=== PATIENT | female | born 1980 | race Caucasian/White ===

== ENCOUNTER → 2023-11-19 19:01 | Outpatient (REF) | payer OTHER, SELFPAY | LOC: MRI 19:01 | PROVIDERS: ATTENDING PHYSICIAN Orthopaedic Surgery; FAMILY PHYSICIAN Nurse Practitioner | DX: M54.16 Radiculopathy, lumbar region (principal) | CPT/HCPCS: 72148 ==

== ENCOUNTER 2025-03-10 16:20 | Emergency (ER) | payer OTHER, SELFPAY ==
[2025-03-10 16:22] VITALS: BP 121/82
[2025-03-10 16:40] LABS: Hematocrit 36.0 % (37.0-47.0); Hemoglobin 13.2 g/dL (12.0-16.0); Mean Corp Hgb Conc. 36.7 g/dL (33.0-37.0); Mean Corpuscular Volume 106.5 fL (81.0-99.0); Nucleated Red Blood Cells % 0 %; Platelet Count 182 10^3/uL (130-400); Red Cell Dist. Width 13.0 % (11.5-14.5)
[2025-03-10 16:54] LABS: HCG, Serum Qualitative Screen Negative
[2025-03-10 16:55] LABS: INR 1.04; PT 13.9 Sec (11.4-14.6)
[2025-03-10 16:56] LABS: APTT 25.6 Sec (23.4-35.0)
[2025-03-10 16:58] LABS: ALT (SGPT) 71 U/L (0-35); AST (SGOT) 108 U/L (14-36); Albumin 4.7 g/dl (3.5-5.0); Alkaline Phosphatase 42 U/L (38-126); Blood Urea Nitrogen 8 mg/dl (7-17); Calcium 9.4 mg/dl (8.4-10.2); Carbon Dioxide 17 mmol/L (22-30); Chloride 110 mmol/L (98-107); Glucose 96 mg/dl (70-99); Potassium 4.0 mmol/L (3.5-5.1); Sodium 139 mmol/L (135-145); Total Protein 6.8 g/dl (6.3-8.2); eGFR > 60.00
== END 2025-03-10 18:57 ==
LOC: EMR 16:20
PROVIDERS: Emergency Medicine
DX: K62.5 Hemorrhage of anus and rectum (principal); Z53.21 Procedure and treatment not carried out due to patient leaving prior to being seen by health care provider
CPT/HCPCS: 80053; 84703; 85025; 85610; 85730

== ENCOUNTER 2025-03-11 07:11 | Emergency (ER) | payer OTHER, SELFPAY ==
[2025-03-11 07:17] VITALS: BP 117/77
--- NOTE | 2025-03-11 09:10 | ED.GENMED ---
History of Present Illness
General
Chief Complaint: Rectal Bleeding
Time Seen by Provider: 03/11/25 08:47
History of Present Illness
History of Present Illness:
44-year-old female with past medical history of anemia, gastric bypass in 2007 presenting to the emergency department for concern of blood after defecation, and difficulty tolerating certain foods. She notes particularly in the past few days every
time that she eats bread containing products she will vomit. Yesterday she notes she was able to tolerate a smoothie and a small piece of pizza. She came to the ER as directed by her doctor, however due to extended wait, left without being seen.
She then went to [facility] and had a cheeseburger. After eating a cheeseburger, she vomited. She does note that she has been on Mounjaro for the past year without significant complications. Denies any present abdominal pain. Does note some
abdominal pain preceding her vomiting. As far as the blood per rectum, notes that the blood is visible after wiping, however brown stool. She is not on any blood thinners. Denies weakness or lightheadedness. Denies chest pain or difficulty
breathing. Denies additional acute medical complaints
Past History
Past History
ED Past Medical History: Other (pcos, gastric bypass, anemia)
ED Past Surgical History: , Gynecological, Tonsilectomy and Other
Social History
Tobacco: Non-smoker
Alcohol: Occasional
Drug: None
Living: with family
Employment: Employed
Phy Exam
Physical Exam
Physical Exam:
General: Well-appearing, no clinical signs of dehydration, nontoxic and in no acute distress
HEENT: protecting airway
Neck: appears supple
CV: Normal heart rate, regular rhythm
Resp: No accessory muscle use, no increased work of breathing, lungs clear to ausc, normal bowel sounds
Extremities: No deformities, no swelling
Neuro: alert, no focal neurologic deficit
: deferred
Rectal: Hemoccult negative brown stool
Psych: Normal affect
Skin: Intact
Course
Orders/Labs/Results
Orders:
Orders
03/11/25 09:38
CBC/With Diff [Complete Blood Count/With Diff] Urgent
Comprehensive Metabolic Panel Urgent
Lipase Urgent
Abnormal Lab Results
03/11/25
09:38
WBC 4.0 L 10^3/uL
(4.8-10.8)
RBC 3.45 L 10^6/uL
(4.20-5.40)
Hct 36.5 L %
(37.0-47.0)
MCV 105.8 H fL
(81.0-99.0)
MCH 37.7 H pg
(27.0-31.0)
Chloride 109 H mmol/L
(98-107)
Carbon Dioxide 19 L mmol/L
(22-30)
AST 85 H U/L
(14-36)
ALT 71 H U/L
(0-35)
03/11/25 09:38
03/11/25 09:38
Vital Signs
Initial and Last Documented VS:
Initial Vital Signs
Temp Pulse Resp BP Pulse Ox
98.4 F 104 16 117/77 97
03/11/25 07:17 03/11/25 07:17 03/11/25 07:17 03/11/25 07:17 03/11/25 07:17
Last Documented Vital Signs
Temp Pulse Resp BP Pulse Ox
98.4 F 104 16 117/77 97
03/11/25 07:17 03/11/25 07:17 03/11/25 07:17 03/11/25 07:17 03/11/25 09:12
MDM/Problems Addressed
MDM/Problems Addressed:
44-year-old female with prior history of gastric bypass presenting for food intolerance and concern of blood per rectum. Vital signs are normal.
On exam patient is resting comfortably, no acute distress or discomfort. Regarding blood per rectum, Hemoccult negative, and hemodynamically stable without any concern for significant GI hemorrhage. Patient had labs obtained yesterday, prior to
LWOT, normal hemoglobin. Will repeat to ensure no interval change. Patient notes she has had blood per rectum in the past, attributed to hemorrhoids. Suspected likely source. Regarding her food intolerance, appears to be focused to bread
containing products. Possible gluten sensitivity or developing allergy. Could also be related to patient's use of Mounjaro. No clinical signs of dehydration. No tenderness of the abdomen without any concern for serious intra-abdominal process or
infection. No indication for advanced abdominal imaging.
10:30 -labs show a mild elevation of liver enzymes, however improved from yesterday. No focal tenderness to the right upper quadrant. Suspect likely from fatty liver disease. Feel stable for discharge outpatient PCP and GI follow-up. May warrant
endoscopy versus colonoscopy. Advised diet modification. Return precautions discussed
*Pulse Oximetry
SaO2: 97
Oxygen Mode of Delivery: Room air
Patient hypoxic: no
*Critical Care Note
Total Time (30-74mins, 75-104mins- exclusive of procedures): Not Applicable
ED Attending Note
-
Portions of this chart may have been created with voice recognition software.� Occasional wrong word or��sound alike� substitutions may have occurred due to the inherent limitations of voice recognition software.
Discharge Plan
Departure
Patient with high blood pressure during this ER visit?: No
Condition: Good
Discharge Problem:
Gastrointestinal food sensitivity
Instructions: Hemorrhoids (DC), Bloody Stools, Adult (DC), Gluten-free diet
Prescriptions:
No Action
levothyroxine 150 MCG tablet
150 mcg PO HS
sertraline 100 MG tablet
100 mg PO HS
Slow Release Iron
1 tab PO DAILY
lorazepam 1 MG tablet
1 mg PO Q4HPRN PRN (Reason: withdrawal symptoms) Qty: 20 0RF
eszopiclone [Lunesta] 3 MG tablet
3 mg PO HS
celecoxib 100 MG capsule
100 mg PO DAILY
Referrals:
Caron Meyer MD [Active, Gastroenterology]
Ger Grajeda MD [Family Provider, Internal Medicine]
Activity Restrictions/Additional Instructions:
You were seen in the emergency department for concern of blood per rectum and food intolerance
You were found to have reassuring laboratory analysis and rectal exam. We recommend that you follow-up with a gastrointestinal doctor for additional testing and try and gluten free diet
Please follow-up closely with your primary care physician.
Return to the emergency department for any worsening of your symptoms, or any development of chest pain, difficulty breathing, abdominal pain with persistent vomiting and inability to tolerate food or liquid by mouth (concern for dehydration),
weakness, headache or confusion, fever greater than 100.4, or any additional symptoms that are concerning to you.
Thank you for choosing [facility].
Interventions
Interventions:
*Risk Screen - Suicide Last Done: 03/11/25 07:17
*Neglect/Abuse Screening Last Done: 03/11/25 07:17
Discharge Date and Time
Print Language: HEBREW
[2025-03-11 09:39] VITALS: BMI 32.9
[2025-03-11 09:53] LABS: Hematocrit 36.5 % (37.0-47.0); Hemoglobin 13.0 g/dL (12.0-16.0); Mean Corp Hgb Conc. 35.6 g/dL (33.0-37.0); Mean Corpuscular Volume 105.8 fL (81.0-99.0); Nucleated Red Blood Cells % 0 %; Platelet Count 173 10^3/uL (130-400); Red Cell Dist. Width 13.3 % (11.5-14.5)
[2025-03-11 10:00] VITALS: BP 113/87
[2025-03-11 10:24] LABS: ALT (SGPT) 71 U/L (0-35); AST (SGOT) 85 U/L (14-36); Albumin 4.5 g/dl (3.5-5.0); Alkaline Phosphatase 40 U/L (38-126); Blood Urea Nitrogen 7 mg/dl (7-17); Calcium 9.0 mg/dl (8.4-10.2); Carbon Dioxide 19 mmol/L (22-30); Chloride 109 mmol/L (98-107); Estimated Creatinine Clearance > 125 ml/min; Glucose 86 mg/dl (70-99); Lipase 110 U/L (23-300); Potassium 4.2 mmol/L (3.5-5.1); Sodium 139 mmol/L (135-145); Total Protein 6.7 g/dl (6.3-8.2); eGFR > 60.00
[2025-03-11 11:05] VITALS: BP 124/68
== END 2025-03-11 11:06 | disposition home or self-care (01) ==
LOC: EMR 07:11
PROVIDERS: EMERGENCY PHYSICIAN Student in an Organized Health Care Education/Training Program; FAMILY PHYSICIAN Internal Medicine
DX: T78.1XXA Other adverse food reactions, not elsewhere classified, initial encounter (principal); X58.XXXA Exposure to other specified factors, initial encounter; D64.9 Anemia, unspecified; Z87.19 Personal history of other diseases of the digestive system; Z98.84 Bariatric surgery status
CPT/HCPCS: 99283; 80053; 83690; 85025

== ENCOUNTER 2025-03-22 06:20 | Day surgery (SDC) | payer OTHER, SELFPAY | END 2025-03-22 13:09 | disposition home or self-care (01) | LOC: GI 06:20 | PROVIDERS: ATTENDING PHYSICIAN Internal Medicine | DX: K92.1 Melena (principal); K64.8 Other hemorrhoids; R11.2 Nausea with vomiting, unspecified; K44.9 Diaphragmatic hernia without obstruction or gangrene; R10.13 Epigastric pain; K21.00 Gastro-esophageal reflux disease with esophagitis, without bleeding; K29.50 Unspecified chronic gastritis without bleeding; K31.89 Other diseases of stomach and duodenum; Z98.0 Intestinal bypass and anastomosis status; Z98.84 Bariatric surgery status | CPT/HCPCS: 45378; 43239; 88305; 88342 ==

== ENCOUNTER → 2025-04-02 06:42 | Outpatient (REF) | payer OTHER, SELFPAY | LOC: RAD 06:42 | PROVIDERS: ATTENDING PHYSICIAN Internal Medicine; FAMILY PHYSICIAN Nurse Practitioner | DX: R74.8 Abnormal levels of other serum enzymes (principal) | CPT/HCPCS: 76700; 93975 ==

== ENCOUNTER 2025-06-18 14:46 | Emergency (ER) | payer OTHER, SELFPAY ==
[2025-06-18 14:49] VITALS: BP 158/96
--- NOTE | 2025-06-18 15:03 | ED.GENMED ---
History of Present Illness
General
Chief Complaint: Head Injury
Time Seen by Provider: 06/18/25 14:56
History of Present Illness
History of Present Illness:
Patient is a 44-year-old woman who is otherwise healthy presenting to the emergency department with headache. Patient states that on June 05 she fell down 8 steps at work. Since then she has been having a diffuse headache ringing in her ears
intermittent vision changes (floaters) and nausea. She has been taking Tylenol with some light sensitivity and sound sensitivity. She is having difficulty with screen and focusing. No history of concussion. Went to an urgent care and they
diagnosed her with a concussion and back sprain. Her back has improved though head symptoms have persisted. She went to her PCP today who recommended CT scan of the head given persistent symptoms.
Past History
Past History
ED Past Medical History: Other (pcos, gastric bypass, anemia)
ED Past Surgical History: , Gynecological, Tonsilectomy and Other
Social History
Tobacco: Non-smoker
Alcohol: Occasional
Drug: None
Living: with family
Employment: Employed
Phy Exam
Physical Exam
Physical Exam:
GENERAL: no acute distress
HEENT: atraumatic, extraocular muscles intact, no signs of entrapment, dentition intact, no other obvious trauma, visual acuity grossly intact, no floaters currently
NECK: no midline tenderness, positive paracervical tenderness, Normal range of motion, NEXUS criteria negative, no other obvious trauma
BACK: no midline tenderness, positive paraspinal lower lumbar tenderness, no other obvious trauma
CHEST: no tenderness, no flail segment, no subcutaneous emphysema, no other obvious trauma
LUNGS: clear to auscultation bilaterally
CARDIOVASCULAR: regular rate and rhythm
ABDOMEN: soft, non-tender, no masses, no other obvious trauma
PELVIS: stable, no obvious injury
EXTREMITIES: moving all extremities, distal pulses intact, no other obvious trauma
NEUROLOGIC: awake, alert x 3, no focal deficits
Course
Orders/Labs/Results
Orders:
Orders
06/18/25 14:54
CT Head W/o Iv Contrast Urgent
Comment:
Reason For Exam: ESTRADA post concussion
06/18/25 15:04
Acetaminophen [Tylenol] 650 mg PO NOW STA
06/18/25 17:00
Lidocaine [Lidocaine 4% Patch] 1 patch TOPICAL DAILY
Apply Lidocaine patch(s) to:: back
Vital Signs
Initial and Last Documented VS:
Initial Vital Signs
Temp Pulse Resp BP Pulse Ox
97.6 F 101 16 158/96 98
06/18/25 14:49 06/18/25 14:49 06/18/25 14:49 06/18/25 14:49 06/18/25 14:49
Last Documented Vital Signs
Temp Pulse Resp BP Pulse Ox
97.6 F 101 16 158/96 98
06/18/25 14:49 06/18/25 14:49 06/18/25 14:49 06/18/25 14:49 06/18/25 15:08
MDM/Problems Addressed
Differential Diagnosis Includes:
Patient is a 44-year-old woman presenting to the emergency department with persistent symptoms of headache nausea focusing difficulty tinnitus and a fall on June 05. On arrival patient is hypertensive. Exam does not show any focal deficits.
Will rule out intracranial injury with CT scan of the head if unremarkable likely postconcussive syndrome. Patient will follow up with outpatient PCP as well as optho regarding vision changes.
*Pulse Oximetry
SaO2: 98
Oxygen Mode of Delivery: Room air
Patient hypoxic: no
*Critical Care Note
Total Time (30-74mins, 75-104mins- exclusive of procedures): Not Applicable
Update Note
Update Note:
CT scan of the head per my interpretation with no obvious abnormality. Will discharge patient at this time with outpatient follow-up.
ED Attending Note
-
Portions of this chart may have been created with voice recognition software.� Occasional wrong word or��sound alike� substitutions may have occurred due to the inherent limitations of voice recognition software.
Discharge Plan
Departure
Patient Disposition: Home (Routine Discharge)
Date of Disposition: 06/18/25
Time of Disposition: 18:11
Patient with high blood pressure during this ER visit?: Yes
Discharge Problem:
Concussion
Instructions: Concussion, Adult (DC)
Prescriptions:
No Action
levothyroxine 150 MCG tablet
150 mcg PO HS
sertraline 100 MG tablet
100 mg PO HS
Slow Release Iron
1 tab PO DAILY
lorazepam 1 MG tablet
1 mg PO Q4HPRN PRN (Reason: withdrawal symptoms) Qty: 20 0RF
eszopiclone [Lunesta] 3 MG tablet
3 mg PO HS
celecoxib 100 MG capsule
100 mg PO DAILY
Referrals:
feldmna [Other]
Kisha Kraus MD [Non-Admitting Privileges, Neurology]
Referral Note: concusion
Ger Grajeda MD [Family Provider, Internal Medicine]
Stand Alone Forms: Return to Work
Interventions
Interventions:
*Risk Screen - Suicide Last Done: 06/18/25 14:49
*Neglect/Abuse Screening Last Done: 06/18/25 14:49
*ED COVID-19 Vaccine History Last Done: 06/18/25 17:06
*ED Influenza Vaccine History Last Done: 06/18/25 17:06
ED- Neurological Assessment Last Done: 06/18/25 15:08
Discharge Date and Time
Print Language: UKRAINIAN
[2025-06-18] MEDS: TYLENOL 650 MG PO (15:07)
[2025-06-18] MEDS: LIDOCAINE 4% PATCH 1 PATCH TOPICAL (17:01)
[2025-06-18 18:47] VITALS: BP 115/79
== END 2025-06-18 18:51 | disposition home or self-care (01) ==
LOC: EMR 14:46
PROVIDERS: EMERGENCY PHYSICIAN Student in an Organized Health Care Education/Training Program; FAMILY PHYSICIAN Internal Medicine
DX: S06.0XAA Concussion with loss of consciousness status unknown, initial encounter (principal); W10.9XXA Fall (on) (from) unspecified stairs and steps, initial encounter; Y99.0 Civilian activity done for income or pay; R51.9 Headache, unspecified; E28.2 Polycystic ovarian syndrome; Z98.84 Bariatric surgery status; Z98.891 History of uterine scar from previous surgery
CPT/HCPCS: 99284; 70450

== ENCOUNTER → 2025-07-05 18:33 | Outpatient (REF) | payer OTHER, SELFPAY | LOC: MRI 18:33 | PROVIDERS: ATTENDING PHYSICIAN Internal Medicine; FAMILY PHYSICIAN Internal Medicine | DX: R74.8 Abnormal levels of other serum enzymes (principal); K76.0 Fatty (change of) liver, not elsewhere classified; K86.2 Cyst of pancreas | CPT/HCPCS: 74183; 76391; A9575 ==